=== PATIENT | female | born 1950 | race Caucasian/White ===

== ENCOUNTER 2019-09-22 09:34 | Emergency (ER) | payer MEDICARE ==
[2019-09-22 10:05] LABS: VENOUS BLOOD BASE EXCESS -2.7 mmol/L; VENOUS BLOOD HCO3 22.5 mmol/L (20-32); VENOUS BLOOD PCO2 40.4 mmHg (35-63); VENOUS BLOOD PH 7.36 (7.30-7.42)
[2019-09-22] MEDS ORDERED: IPRATROPIUM/ALBUTEROL 0.5-2.5 MG/3 ML AMPUL NEB ONE (10:11)
[2019-09-22] MEDS ORDERED: METHYLPREDNISOLONE INJ 125 MG/2 ML SDV IV ONE (10:11)
--- NOTE | 2019-09-22 10:17 | RADIOLOGY REPORT (SQ) ---
EXAM DESCRIPTION: CHEST SINGLE VIEW COMPLETED DATE/TIME: 09/22/2019 10:00 am REASON FOR STUDY: cough COMPARISON: None. EXAM PARAMETERS: NUMBER OF VIEWS: One view. TECHNIQUE: Single frontal radiographic view of the chest acquired. RADIATION DOSE: NA LIMITATIONS: None. FINDINGS: LUNGS AND PLEURA: No opacities, masses or pneumothorax. No pleural effusion. MEDIASTINUM AND HILAR STRUCTURES: No masses. Contour normal. HEART AND VASCULAR STRUCTURES: Heart normal in size. Normal vasculature. BONES: No acute findings. HARDWARE: None in the chest. OTHER: No other significant finding. IMPRESSION: NO ACUTE RADIOGRAPHIC FINDING IN THE CHEST. TECHNICAL DOCUMENTATION: JOB ID: [id number] 2010 [employer]- All Rights Reserved Reading location - IP/workstation name: [email or web address]
[2019-09-22 10:19] LABS: INTERNATIONAL RATION (INR) 1.13; PROTHROMBIN TIME 14.5 SEC (11.4-15.4)
--- NOTE | 2019-09-22 10:23 | ER Document Report ---
ED Respiratory Problem - General Chief Complaint: Congestion Stated Complaint: COUGH,CONGESTION,SHORT OF BREATH Primary Care Provider: SAMUEL FORBES PA [Primary Care Provider] - Follow up as needed Mode of Arrival: Wheelchair Information source: Patient, Relative - HPI Patient complains to provider of: Cough - Pt. with h/o COPD (no longer smoking) with bronchitis/PNA in the past with c/o ST, cough productive of green sputum and SOB, for the past 3-4 days. Denies fever, CP., Short of breath - Related Data Allergies/Adverse Reactions: Sulfa (Sulfonamide Antibiotics) Allergy (Verified 09/22/19 10:00) Past Medical History - Social History Smoking Status: Former Smoker Cigarette use (# per day): No Chew tobacco use (# tins/day): No Family History: None Review of Systems - Review of Systems Constitutional: No symptoms reported EENT: No symptoms reported Respiratory: See HPI, Cough, Short of breath, Sputum -: Yes All other systems reviewed and negative Physical Exam - Vital signs Vitals: Temp Pulse Resp BP Pulse Ox 98.2 F 110 H 36 H 163/135 H 83 L 09/22/19 09:42 09/22/19 09:42 09/22/19 09:42 09/22/19 09:42 09/22/19 09:42 - General General appearance: Alert In distress: None - HEENT Head: Normocephalic Pupils: PERRL Mucous membranes: Normal Pharynx: Normal Neck: Normal - Respiratory Respiratory status: No respiratory distress Chest status: Nontender Breath sounds: Wheezing - bilateral end-expiratory Chest palpation: Normal - Cardiovascular Rhythm: Regular Heart sounds: Normal auscultation - Abdominal Inspection: Normal Tenderness: Nontender Organomegaly: No organomegaly - Neurological Neuro grossly intact: Yes Cognition: Normal Orientation: AAOx4 Course - Re-evaluation Re-evalutation: 09/22/19 12:57 Pt feels somewhat better -- family tried to talk he into being admitted but she is adamant and has refused -- she will sign out AMA - Vital Signs Vital signs: Temp Pulse Resp BP Pulse Ox 98.2 F 110 H 27 H 159/101 H 94 09/22/19 09:42 09/22/19 09:42 09/22/19 11:30 09/22/19 11:30 09/22/19 11:30 - Laboratory Result Diagrams: 09/22/19 09:48 09/22/19 09:48 Laboratory results interpreted by me: 09/22/19 09/22/19 09:48 09:48 WBC 21.6 H Seg Neuts % (Manual) 90 H Lymphocytes % (Manual) 4 L Abs Neuts (Manual) 19.4 H Sodium 136.8 L Chloride 96 L Glucose 170 H Alkaline Phosphatase 142 H - Diagnostic Test Radiology reviewed: Reports reviewed - CXR- wnl - EKG Interpretation by Me EKG shows normal: Sinus rhythm Rate: Normal Rhythm: NSR - nsr without acute change Discharge - Discharge Clinical Impression: Respiratory distress Upper respiratory infection Qualifiers: URI type: unspecified URI Qualified Code(s): J06.9 - Acute upper respiratory infection, unspecified Condition: Stable Disposition: AGAINST MEDICAL ADVICE Instructions: Upper Respiratory Illness ([facility]) Additional Instructions: rest, take meds as prescribed, return if worse Prescriptions: Azithromycin [Zithromax Tri-Jung] 500 mg PO DAILY #1 pkg Referrals: SAMUEL FORBES PA [Primary Care Provider] - Follow up as needed
[2019-09-22 10:30] LABS: HEMATOCRIT 36.6 % (36.0-47.0); HEMOGLOBIN 12.4 g/dL (12.0-15.5); MEAN CORPUSCULAR HEMOGLOBIN 30.1 pg (27.0-33.4); MEAN CORPUSCULAR HGB CONC 33.9 g/dL (32.0-36.0); MEAN CORPUSCULAR VOLUME 89 fl (80-97); PLATELET COUNT 352 10^3/uL (150-450); RED BLOOD COUNT 4.11 10^6/uL (3.72-5.28); WHITE BLOOD COUNT 21.6 10^3/uL (4.0-10.5)
[2019-09-22 10:34] LABS: ALBUMIN 4.5 g/dL (3.5-5.0); ALKALINE PHOSPHATASE 142 U/L (38-126); ANION GAP 12 (5-19); ASPARTATE AMINO TRANSFERASE 27 U/L (14-36); BILIRUBIN,TOTAL 0.9 mg/dL (0.2-1.3); BLOOD UREA NITROGEN 12 mg/dL (7-20); CALCIUM 9.9 mg/dL (8.4-10.2); CARBON DIOXIDE 29 mmol/L (22-30); CHLORIDE 96 mmol/L (98-107); GLUCOSE 170 mg/dL (75-110); POTASSIUM 4.4 mmol/L (3.6-5.0); TOTAL PROTEIN 8.1 g/dL (6.3-8.2)
[2019-09-22] MEDS: ALBUTEROL SULFATE 0.083% NEB 2.5 MG/3 ML AMPUL NEB SCH ×2 (10:42→11:16)
[2019-09-22 11:01] LABS: ABSOLUTE LYMPHOCYTES# (MANUAL) 0.9 10^3/uL (0.5-4.7); ABSOLUTE MONOCYTES # (MANUAL) 1.1 10^3/uL (0.1-1.4); BASOPHILS % (MANUAL) 1 % (0-2); EOSINOPHILS % (MANUAL) 0 % (0-6); LYMPHOCYTES % (MANUAL) 4 % (13-45); MONOCYTES % (MANUAL) 5 % (3-13); SEGMENTED NEUTROPHILS % (MAN) 90 % (42-78); TOTAL CELLS COUNTED 100
[2019-09-22 11:02] LABS: ANISOCYTOSIS SLIGHT; PLATELET COMMENT ADEQUATE
[2019-09-22 11:13] LABS: A TYPE INFLUENZA AG NEGATIVE (NEGATIVE); B INFLUENZA AG NEGATIVE (NEGATIVE)
[2019-09-22 13:00] VITALS: BP 155/101
--- NOTE | 2019-09-22 16:19 | EKG REPORT ---
SEVERITY:- BORDERLINE ECG - SINUS RHYTHM BORDERLINE T ABNORMALITIES, ANT-LAT LEADS : Confirmed by: Linda Mejia MD 22-Sep-2019 16:18:32
== END 2019-09-22 13:16 | disposition left against medical advice (07) ==
LOC: ER 09:34
DX: J06.9 Acute upper respiratory infection, unspecified (principal); R06.03 Acute respiratory distress; R09.81 Nasal congestion; R09.89 Other specified symptoms and signs involving the circulatory and respiratory systems; R05 Cough; R06.02 Shortness of breath; J44.9 Chronic obstructive pulmonary disease, unspecified; Z87.891 Personal history of nicotine dependence; Z88.2 Allergy status to sulfonamides
CPT/HCPCS: 93005; 94640 ×2; 99284; 96374; 36415; 87040; 83605; 85025; 85610; 80053; 84484; 82803; 87804; 71045; 93010; J2930; A9270 ×2; J7620